=== PATIENT | male | born 2000 | race Two or more races ===

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

== ENCOUNTER 2019-05-20 21:56 | Emergency (ER) | payer MEDICAID ==
[~2019-05-20] VITALS: Ht 167.6 cm; Wt 81.6 kg
[2019-05-21 01:40] VITALS: BP 146/75
== END 2019-05-21 02:08 | disposition home or self-care (01) ==
LOC: ER 21:57
DX: J32.9 Chronic sinusitis, unspecified (principal)
CPT/HCPCS: 70450